=== PATIENT | female | born 1960 | race Caucasian/White ===

== ENCOUNTER 2019-04-22 22:10 | Inpatient (IN) | payer OTHER ==
[~2019-04-22] VITALS: Ht 149.9 cm; Wt 54.0 kg
[~2019-04-22 22:10] MED LIST: BECL8.7A6 IH; METH10 PO
[2019-04-23] VITALS (8 sets, daily range): BP systolic 127–155; BP diastolic 90–112
[2019-04-23 00:58] LABS: BASOPHILS % (AUTO) 1.1 % (0.0-2.0); EOSINOPHILS % (AUTO) 5.8 % (1.0-6.0); HEMATOCRIT 37.9 % (36-46); HEMOGLOBIN 12.4 g/dL (12.0-16.0); LYMPHOCYTES # (AUTO) 2.1 K/uL (1.0-4.8); LYMPHOCYTES % (AUTO) 30.7 % (22.0-44.0); MEAN CORPUSCULAR HGB CONC 32.8 G/dL (31.0-37.0); MEAN CORPUSCULAR VOLUME 98 fL (80-100); MONOCYTES # (AUTO) 0.7 K/uL (0.1-1.0); MONOCYTES % (AUTO) 11.1 % (2.0-9.0); NEUTROPHILS # (AUTO) 3.4 K/uL (1.8-7.7); NEUTROPHILS % (AUTO) 51.3 % (40.0-70.0); PLATELET COUNT (AUTO) 101 K/uL (150-450); RED BLOOD CELL COUNT(AUTO) 3.88 MIL/uL (4.00-5.20); RED CELL DISTRIBUTION WIDTH 14.8 % (11.5-14.5)
[2019-04-23 01:15] LABS: ALBUMIN 2.3 g/dL (3.4-5.0); BILIRUBIN,TOTAL 1.1 mg/dL (0.1-1.0); CALCIUM, TOTAL 9.2 mg/dL (8.8-10.5); CREATININE 1.07 mg/dL (0.60-1.30); POTASSIUM 3.4 mmol/L (3.5-5.1)
[2019-04-23] MEDS ORDERED: PIPERACILLIN/TAZO 3.375 GM/D5W 50 ML IV ONE (02:30)
[2019-04-23] MEDS ORDERED: SODIUM CHLORIDE 0.9% 1,000 ML IV ONE (02:30)
[2019-04-23] MEDS ORDERED: KETOROLAC TROMETHAMINE 30 MG/ML VIAL IVP ONE (02:30)
[2019-04-23] MEDS ORDERED: VANCOMYCIN HCL 1.5 GM in DEXTROSE 5%-WATER 250 ML IV ONE (02:30)
[2019-04-23 02:54] LABS: URIC ACID 2.9 mg/dL (2.6-7.2)
[2019-04-23] MEDS ORDERED: VANCOMYCIN HCL 1 GM/D5% WATER 200 ML IV ONE (03:00)
[2019-04-23] MEDS ORDERED: ACETAMINOPHEN 325 MG TABLET PO PRN (04:45)
[2019-04-23] MEDS ORDERED: ONDANSETRON HCL 4 MG/2 ML VIAL IVP PRN (04:45)
[2019-04-23] MEDS ORDERED: 0.9% SODIUM CHLORIDE 10 ML SYRINGE IVP PRN ×2 (04:45→13:30)
[2019-04-23 06:10] LABS: GLUCOSE,POINT OF CARE 390 MG/DL (70-110)
[2019-04-23] MEDS ORDERED: OxyCODONE HCL/ACETAMINOPHEN 5-325 MG TABLET PO PRN (08:00)
[2019-04-23] MEDS: PIPERACILLIN/TAZO 3.375 GM/D5W 50 ML IV SCH ×3 (09:47→21:30)
[2019-04-23] MEDS ORDERED: VANCOMYCIN HCL 500 MG in DEXTROSE 5%-WATER 100 ML IV ONE (10:00)
[2019-04-23] MEDS ORDERED: DEXTROSE 50%-WATER 25 GM/50 ML SYRINGE IVP PRN ×2 (12:00→12:15)
[2019-04-23] MEDS ORDERED: POTASSIUM CHLORIDE 20 MEQ ER TABLET PO ONE (12:00)
[2019-04-23] MEDS ORDERED: INSULIN REGULAR, HUMAN 100 UNITS/ML SQ PRN (12:00)
[2019-04-23] MEDS: INSULIN REGULAR, HUMAN 100 UNITS/ML SQ PRN ×3 (12:19→21:22)
[2019-04-23] MEDS ORDERED: MORPHINE SULFATE 2 MG/ML SYRINGE IVP PRN (12:30)
[2019-04-23] MEDS: HEPARIN SODIUM,PORCINE 5,000 UNITS/ML VIAL SQ SCH ×2 (13:43→21:31)
[2019-04-23] MEDS: OxyCODONE HCL/ACETAMINOPHEN 5-325 MG TABLET PO PRN (17:40)
[2019-04-23 20:21] LABS: GLUCOMETER DEV NAME(LOC) 6N.1; GLUCOSE,POINT OF CARE 451 MG/DL (70-110)
[2019-04-23 20:21] LABS: GLUCOMETER DEV NAME(LOC) 6N.1; GLUCOSE,POINT OF CARE 133 MG/DL (70-110)
[2019-04-23] MEDS: DOCUSATE SODIUM 100 MG CAPSULE PO SCH (21:11)
[2019-04-23] MEDS: GABAPENTIN 100 MG CAPSULE PO SCH (21:11)
[2019-04-23] MEDS: FAMOTIDINE 10 MG/ML 2 ML VIAL IVP SCH (21:11)
[2019-04-23] MEDS: VANCOMYCIN HCL 500 MG in DEXTROSE 5%-WATER 100 ML IV SCH ×2 (21:11→21:29)
[2019-04-23] MEDS: INSULIN GLARGINE,HUM.REC.ANLOG 100 UNITS/ML SQ SCH (21:24)
[2019-04-24] MEDS: OxyCODONE HCL/ACETAMINOPHEN 5-325 MG TABLET PO PRN ×5 (01:57→21:16)
[2019-04-24] MEDS: PIPERACILLIN/TAZO 3.375 GM/D5W 50 ML IV SCH ×4 (03:41→21:15)
[2019-04-24 04:50] VITALS: BP 153/98
[2019-04-24 05:34] LABS: GLUCOMETER DEV NAME(LOC) 6N.2; GLUCOSE,POINT OF CARE 287 MG/DL (70-110)
[2019-04-24 06:35] LABS: GLUCOMETER DEV NAME(LOC) 6N.2; GLUCOSE,POINT OF CARE 147 MG/DL (70-110)
[2019-04-24] MEDS: INSULIN REGULAR, HUMAN 100 UNITS/ML SQ PRN ×4 (06:37→21:34)
[2019-04-24 06:39] LABS: BASOPHILS % (AUTO) 1.2 % (0.0-2.0); EOSINOPHILS % (AUTO) 7.6 % (1.0-6.0); HEMATOCRIT 38.1 % (36-46); HEMOGLOBIN 12.6 g/dL (12.0-16.0); LYMPHOCYTES # (AUTO) 1.8 K/uL (1.0-4.8); LYMPHOCYTES % (AUTO) 42.6 % (22.0-44.0); MEAN CORPUSCULAR HEMOGLOBIN 32.2 pg (26.0-34.0); MEAN CORPUSCULAR HGB CONC 33.2 G/dL (31.0-37.0); MEAN CORPUSCULAR VOLUME 97 fL (80-100); MONOCYTES # (AUTO) 0.5 K/uL (0.1-1.0); MONOCYTES % (AUTO) 11.6 % (2.0-9.0); NEUTROPHILS # (AUTO) 1.6 K/uL (1.8-7.7); RED BLOOD CELL COUNT(AUTO) 3.93 MIL/uL (4.00-5.20); RED CELL DISTRIBUTION WIDTH 15.1 % (11.5-14.5)
[2019-04-24 06:54] LABS: HEMOGLOBIN A1C 7.3 % (4.5-6.2)
[2019-04-24 07:06] LABS: BILIRUBIN,TOTAL 1.2 mg/dL (0.1-1.0); CALCIUM, TOTAL 8.8 mg/dL (8.8-10.5); CREATININE 1.08 mg/dL (0.60-1.30); POTASSIUM 3.9 mmol/L (3.5-5.1); TOTAL PROTEIN, SERUM 7.3 g/dL (6.4-8.2); VANCOMYCIN,RANDOM 8.2 mcg/mL (25.0-50.0)
[2019-04-24 07:44] VITALS: BP 122/106
[2019-04-24] MEDS: VANCOMYCIN HCL 500 MG in DEXTROSE 5%-WATER 100 ML IV SCH ×3 (08:30→23:28)
[2019-04-24] MEDS: HEPARIN SODIUM,PORCINE 5,000 UNITS/ML VIAL SQ SCH ×2 (08:31→21:17)
[2019-04-24] MEDS: DOCUSATE SODIUM 100 MG CAPSULE PO SCH ×3 (08:31→21:36)
[2019-04-24] MEDS: INSULIN GLARGINE,HUM.REC.ANLOG 100 UNITS/ML SQ SCH ×2 (08:34→21:32)
[2019-04-24 08:44] LABS: PLATELET COUNT (AUTO) 90 K/uL (150-450)
[2019-04-24 11:31] VITALS: BP 136/94
[2019-04-24 15:25] VITALS: BP 158/100
[2019-04-24 17:36] LABS: GLUCOMETER DEV NAME(LOC) 6N.2; GLUCOSE,POINT OF CARE 349 MG/DL (70-110)
[2019-04-24 19:35] VITALS: BP 143/100
[2019-04-24 20:54] LABS: GLUCOMETER DEV NAME(LOC) 6N.1; GLUCOSE,POINT OF CARE 174 MG/DL (70-110)
[2019-04-24] MEDS: GABAPENTIN 100 MG CAPSULE PO SCH (21:17)
[2019-04-24] MEDS: FAMOTIDINE 10 MG/ML 2 ML VIAL IVP SCH (21:17)
[2019-04-24 21:56] LABS: GLUCOMETER DEV NAME(LOC) 6N.1; GLUCOSE,POINT OF CARE 273 MG/DL (70-110)
[2019-04-24 23:45] VITALS: BP 145/105
[2019-04-25 00:13] VITALS: BP 135/94
[2019-04-25] MEDS: PIPERACILLIN/TAZO 3.375 GM/D5W 50 ML IV SCH ×3 (02:03→15:44)
[2019-04-25] MEDS: OxyCODONE HCL/ACETAMINOPHEN 5-325 MG TABLET PO PRN ×6 (02:04→22:52)
[2019-04-25] MEDS ORDERED: AmLODIPine BESYLATE 10 MG TABLET PO ONE (04:00)
[2019-04-25 04:10] VITALS: BP 149/97
[2019-04-25 06:22] LABS: GLUCOMETER DEV NAME(LOC) 6N.2; GLUCOSE,POINT OF CARE 273 MG/DL (70-110)
[2019-04-25] MEDS: INSULIN REGULAR, HUMAN 100 UNITS/ML SQ PRN ×3 (06:40→17:37)
[2019-04-25 07:21] LABS: CALCIUM, TOTAL 8.3 mg/dL (8.8-10.5); CREATININE 1.12 mg/dL (0.60-1.30); POTASSIUM 4.4 mmol/L (3.5-5.1)
[2019-04-25 07:35] VITALS: BP 134/93
[2019-04-25] MEDS: VANCOMYCIN HCL 500 MG in DEXTROSE 5%-WATER 100 ML IV SCH ×3 (08:53→22:56)
[2019-04-25] MEDS: HEPARIN SODIUM,PORCINE 5,000 UNITS/ML VIAL SQ SCH ×2 (08:54→21:00)
[2019-04-25] MEDS: DOCUSATE SODIUM 100 MG CAPSULE PO SCH ×2 (08:54→21:01)
[2019-04-25] MEDS: INSULIN GLARGINE,HUM.REC.ANLOG 100 UNITS/ML SQ SCH ×2 (09:29→21:00)
[2019-04-25 11:20] VITALS: BP 128/85
[2019-04-25 15:15] LABS: GLUCOMETER DEV NAME(LOC) 6N.2; GLUCOSE,POINT OF CARE 230 MG/DL (70-110)
[2019-04-25 20:00] VITALS: BP 115/82
[2019-04-25] MEDS: FAMOTIDINE 10 MG/ML 2 ML VIAL IVP SCH (21:01)
[2019-04-25] MEDS: GABAPENTIN 100 MG CAPSULE PO SCH (21:01)
[2019-04-25 23:24] VITALS: BP 111/76
[2019-04-26 04:00] VITALS: BP 121/74
[2019-04-26] MEDS ORDERED: RINGERS SOLUTION,LACTATED 1,000 ML IV SCH (06:00)
[2019-04-26 06:08] LABS: BASOPHILS % (AUTO) 0.6 % (0.0-2.0); HEMATOCRIT 28.8 % (36-46); LYMPHOCYTES # (AUTO) 1.9 K/uL (1.0-4.8); LYMPHOCYTES % (AUTO) 33.9 % (22.0-44.0); MEAN CORPUSCULAR HEMOGLOBIN 33.6 pg (26.0-34.0); MEAN CORPUSCULAR HGB CONC 34.6 G/dL (31.0-37.0); MEAN CORPUSCULAR VOLUME 97 fL (80-100); MONOCYTES # (AUTO) 0.7 K/uL (0.1-1.0); MONOCYTES % (AUTO) 11.9 % (2.0-9.0); NEUTROPHILS # (AUTO) 2.7 K/uL (1.8-7.7); NEUTROPHILS % (AUTO) 48.6 % (40.0-70.0); RED BLOOD CELL COUNT(AUTO) 2.97 MIL/uL (4.00-5.20); RED CELL DISTRIBUTION WIDTH 14.8 % (11.5-14.5)
[2019-04-26 06:22] LABS: CALCIUM, TOTAL 8.5 mg/dL (8.8-10.5); CREATININE 0.97 mg/dL (0.60-1.30); POTASSIUM 4.5 mmol/L (3.5-5.1); VANCOMYCIN,RANDOM 13.9 mcg/mL (25.0-50.0)
[2019-04-26] MEDS ORDERED: BUPIVACAINE HCL/PF 0.5% 30 ML VIAL ONE (06:42)
[2019-04-26] MEDS ORDERED: SODIUM CHLORIDE 0.9% 10 ML ONE (06:43)
[2019-04-26] MEDS ORDERED: BACITRACIN 50,000 UNITS/VIAL ONE (06:43)
[2019-04-26] MEDS ORDERED: LIDOCAINE/PF 1% 30 ML VIAL ONE (06:43)
[2019-04-26] MEDS ORDERED: SODIUM CL IRRIG SOLN BAG 3,000 ML IRRIG ONE (06:44)
[2019-04-26 07:12] LABS: PLATELET COUNT (AUTO) 86 K/uL (150-450)
[2019-04-26] MEDS: VANCOMYCIN HCL 500 MG in DEXTROSE 5%-WATER 100 ML IV SCH ×3 (08:54→23:13)
[2019-04-26 08:57] VITALS: BP 103/68
[2019-04-26] MEDS: DOCUSATE SODIUM 100 MG CAPSULE PO SCH ×2 (09:31→19:51)
[2019-04-26] MEDS: AmLODIPine BESYLATE 10 MG TABLET PO SCH (09:32)
[2019-04-26] MEDS: OxyCODONE HCL/ACETAMINOPHEN 5-325 MG TABLET PO PRN ×3 (09:32→20:02)
[2019-04-26] MEDS: INSULIN GLARGINE,HUM.REC.ANLOG 100 UNITS/ML SQ SCH ×2 (09:33→20:12)
[2019-04-26] MEDS: HEPARIN SODIUM,PORCINE 5,000 UNITS/ML VIAL SQ SCH ×2 (09:34→19:51)
[2019-04-26 11:55] VITALS: BP 128/86
[2019-04-26] MEDS ORDERED: KETAMINE HCL 50 MG/ML 10 ML VIAL IVP ONE (12:00)
[2019-04-26] MEDS ORDERED: FentaNYL CITRATE-PF 100 MCG/2 ML VIAL IVP ONE (12:00)
[2019-04-26] MEDS ORDERED: MIDAZOLAM HCL 2 MG/2 ML VIAL IVP ONE (12:00)
[2019-04-26] MEDS: INSULIN REGULAR, HUMAN 100 UNITS/ML SQ PRN ×3 (12:00→20:13)
[2019-04-26] MEDS ORDERED: PROPOFOL 1% 20 ML VIAL IVP ONE (12:00)
[2019-04-26 15:51] VITALS: BP 121/85
[2019-04-26] MEDS: GABAPENTIN 100 MG CAPSULE PO SCH (19:51)
[2019-04-26] MEDS: FAMOTIDINE 10 MG/ML 2 ML VIAL IVP SCH (19:51)
[2019-04-26 20:05] VITALS: BP 140/81
[2019-04-26 23:12] VITALS: BP 113/63
[2019-04-27] MEDS: OxyCODONE HCL/ACETAMINOPHEN 5-325 MG TABLET PO PRN ×5 (00:54→19:53)
[2019-04-27 05:03] VITALS: BP 121/87
[2019-04-27] MEDS: INSULIN REGULAR, HUMAN 100 UNITS/ML SQ PRN ×4 (06:07→20:35)
[2019-04-27 06:22] LABS: BASOPHILS % (AUTO) 0.9 % (0.0-2.0); EOSINOPHILS % (AUTO) 4.4 % (1.0-6.0); HEMATOCRIT 25.7 % (36-46); HEMOGLOBIN 8.9 g/dL (12.0-16.0); MEAN CORPUSCULAR HEMOGLOBIN 33.8 pg (26.0-34.0); MEAN CORPUSCULAR HGB CONC 34.6 G/dL (31.0-37.0); MEAN CORPUSCULAR VOLUME 98 fL (80-100); MONOCYTES # (AUTO) 0.6 K/uL (0.1-1.0); MONOCYTES % (AUTO) 12.4 % (2.0-9.0); NEUTROPHILS # (AUTO) 2.2 K/uL (1.8-7.7); NEUTROPHILS % (AUTO) 43.3 % (40.0-70.0); PLATELET COUNT (AUTO) 93 K/uL (150-450); RED BLOOD CELL COUNT(AUTO) 2.64 MIL/uL (4.00-5.20); RED CELL DISTRIBUTION WIDTH 15.3 % (11.5-14.5)
[2019-04-27 06:51] LABS: CALCIUM, TOTAL 8.7 mg/dL (8.8-10.5); POTASSIUM 4.2 mmol/L (3.5-5.1)
[2019-04-27 08:05] VITALS: BP 130/88
[2019-04-27] MEDS: HEPARIN SODIUM,PORCINE 5,000 UNITS/ML VIAL SQ SCH ×3 (09:00→19:49)
[2019-04-27] MEDS: AmLODIPine BESYLATE 10 MG TABLET PO SCH (09:02)
[2019-04-27] MEDS: DOCUSATE SODIUM 100 MG CAPSULE PO SCH ×2 (09:02→19:49)
[2019-04-27] MEDS: VANCOMYCIN HCL 500 MG in DEXTROSE 5%-WATER 100 ML IV SCH ×3 (09:02→23:54)
[2019-04-27] MEDS: INSULIN GLARGINE,HUM.REC.ANLOG 100 UNITS/ML SQ SCH ×2 (09:04→20:36)
[2019-04-27 11:33] VITALS: BP 137/89
[2019-04-27] MEDS ORDERED: SODIUM CHLORIDE 0.9% 1,000 ML ONE (15:34)
[2019-04-27 16:18] VITALS: BP 136/80
[2019-04-27] MEDS: GABAPENTIN 100 MG CAPSULE PO SCH (19:49)
[2019-04-27] MEDS: FAMOTIDINE 10 MG/ML 2 ML VIAL IVP SCH (19:49)
[2019-04-27 20:46] VITALS: BP 114/75
[2019-04-27 23:53] VITALS: BP 121/68
[2019-04-28] MEDS: OxyCODONE HCL/ACETAMINOPHEN 5-325 MG TABLET PO PRN ×5 (00:57→20:27)
[2019-04-28] MEDS: INSULIN REGULAR, HUMAN 100 UNITS/ML SQ PRN ×4 (05:36→21:31)
[2019-04-28 05:42] VITALS: BP 109/68
[2019-04-28 06:08] LABS: BASOPHILS % (AUTO) 1.1 % (0.0-2.0); EOSINOPHILS % (AUTO) 3.6 % (1.0-6.0); HEMATOCRIT 24.4 % (36-46); HEMOGLOBIN 8.3 g/dL (12.0-16.0); LYMPHOCYTES # (AUTO) 1.2 K/uL (1.0-4.8); LYMPHOCYTES % (AUTO) 26.4 % (22.0-44.0); MEAN CORPUSCULAR HEMOGLOBIN 33.5 pg (26.0-34.0); MEAN CORPUSCULAR HGB CONC 34.1 G/dL (31.0-37.0); MEAN CORPUSCULAR VOLUME 98 fL (80-100); MONOCYTES # (AUTO) 0.5 K/uL (0.1-1.0); MONOCYTES % (AUTO) 10.9 % (2.0-9.0); NEUTROPHILS # (AUTO) 2.6 K/uL (1.8-7.7); PLATELET COUNT (AUTO) 90 K/uL (150-450); RED BLOOD CELL COUNT(AUTO) 2.48 MIL/uL (4.00-5.20)
[2019-04-28 06:17] LABS: ANION GAP 6 mmol/L (8-16); CARBON DIOXIDE 24 mmol/L (22-29); CHLORIDE 105 mmol/L (98-107); CREATININE 0.88 mg/dL (0.60-1.30); GLOMERULAR FILTR. RATE CALC > 60 mL/min (>60); GLUCOSE,RANDOM 233 mg/dL (70-110); POTASSIUM 4.2 mmol/L (3.5-5.1); SODIUM SERUM 135 mmol/L (136-145); UREA NITROGEN, BLOOD 18 mg/dL (7-18)
[2019-04-28 07:30] VITALS: BP 117/69
[2019-04-28] MEDS: AmLODIPine BESYLATE 10 MG TABLET PO SCH (08:03)
[2019-04-28] MEDS: VANCOMYCIN HCL 500 MG in DEXTROSE 5%-WATER 100 ML IV SCH ×2 (08:03→15:44)
[2019-04-28] MEDS: HEPARIN SODIUM,PORCINE 5,000 UNITS/ML VIAL SQ SCH ×3 (08:03→20:13)
[2019-04-28] MEDS: MULTIVITAMINS WITH MINERALS, THERAPEUTIC TABLET PO SCH (08:03)
[2019-04-28] MEDS: DOCUSATE SODIUM 100 MG CAPSULE PO SCH ×2 (08:03→20:13)
[2019-04-28] MEDS ORDERED: SODIUM CHLORIDE 0.9% 1,000 ML ONE (08:06)
[2019-04-28] MEDS: INSULIN GLARGINE,HUM.REC.ANLOG 100 UNITS/ML SQ SCH ×2 (08:10→21:29)
[2019-04-28 11:20] VITALS: BP 128/77
[2019-04-28 15:20] VITALS: BP 124/77
[2019-04-28 19:36] VITALS: BP 99/60
[2019-04-28] MEDS: GABAPENTIN 100 MG CAPSULE PO SCH (20:13)
[2019-04-28] MEDS: FAMOTIDINE 10 MG/ML 2 ML VIAL IVP SCH (20:13)
[2019-04-29] MEDS: OxyCODONE HCL/ACETAMINOPHEN 5-325 MG TABLET PO PRN ×3 (00:36→14:05)
[2019-04-29] MEDS: VANCOMYCIN HCL 500 MG in DEXTROSE 5%-WATER 100 ML IV SCH ×4 (00:39→23:31)
[2019-04-29 00:46] VITALS: BP 101/62
[2019-04-29 04:44] VITALS: BP 121/79
[2019-04-29 05:58] LABS: BASOPHILS % (AUTO) 0.5 % (0.0-2.0); EOSINOPHILS % (AUTO) 4.5 % (1.0-6.0); HEMATOCRIT 21.5 % (36-46); HEMOGLOBIN 7.4 g/dL (12.0-16.0); LYMPHOCYTES # (AUTO) 1.7 K/uL (1.0-4.8); LYMPHOCYTES % (AUTO) 32.5 % (22.0-44.0); MEAN CORPUSCULAR HEMOGLOBIN 34.5 pg (26.0-34.0); MEAN CORPUSCULAR HGB CONC 34.3 G/dL (31.0-37.0); MEAN CORPUSCULAR VOLUME 101 fL (80-100); MONOCYTES # (AUTO) 0.8 K/uL (0.1-1.0); MONOCYTES % (AUTO) 15.8 % (2.0-9.0); NEUTROPHILS # (AUTO) 2.5 K/uL (1.8-7.7); NEUTROPHILS % (AUTO) 46.7 % (40.0-70.0); PLATELET COUNT (AUTO) 89 K/uL (150-450); RED BLOOD CELL COUNT(AUTO) 2.13 MIL/uL (4.00-5.20); RED CELL DISTRIBUTION WIDTH 16.4 % (11.5-14.5)
[2019-04-29 06:11] LABS: CALCIUM, TOTAL 8.1 mg/dL (8.8-10.5); CREATININE 1.03 mg/dL (0.60-1.30); POTASSIUM 4.5 mmol/L (3.5-5.1)
[2019-04-29] MEDS: INSULIN REGULAR, HUMAN 100 UNITS/ML SQ PRN ×4 (06:58→21:07)
[2019-04-29 07:43] VITALS: BP 104/60
[2019-04-29] MEDS: HEPARIN SODIUM,PORCINE 5,000 UNITS/ML VIAL SQ SCH ×2 (08:51→21:04)
[2019-04-29] MEDS: INSULIN GLARGINE,HUM.REC.ANLOG 100 UNITS/ML SQ SCH ×2 (08:52→21:06)
[2019-04-29] MEDS: DOCUSATE SODIUM 100 MG CAPSULE PO SCH ×2 (08:53→21:00)
[2019-04-29] MEDS: AmLODIPine BESYLATE 10 MG TABLET PO SCH (08:53)
[2019-04-29] MEDS: MULTIVITAMINS WITH MINERALS, THERAPEUTIC TABLET PO SCH (08:53)
[2019-04-29 11:01] LABS: INR 1.3 (0.9-1.1); PROTHROMBIN TIME 12.7 SEC (9.4-11.6)
[2019-04-29] MEDS ORDERED: HEPARIN SODIUM 1000 UNITS/NS 500 ML ONE (11:05)
[2019-04-29 13:09] LABS: GLUCOMETER DEV NAME(LOC) 6N.1; GLUCOSE,POINT OF CARE 308 MG/DL (70-110)
[2019-04-29 13:09] LABS: GLUCOMETER DEV NAME(LOC) 6N.1; GLUCOSE,POINT OF CARE 201 MG/DL (70-110)
[2019-04-29 13:09] LABS: GLUCOMETER DEV NAME(LOC) 6N.1; GLUCOSE,POINT OF CARE 231 MG/DL (70-110)
[2019-04-29 13:10] LABS: GLUCOMETER DEV NAME(LOC) 4E.2; GLUCOSE,POINT OF CARE 146 MG/DL (70-110)
[2019-04-29 13:10] LABS: GLUCOMETER DEV NAME(LOC) 4E.2; GLUCOSE,POINT OF CARE 261 MG/DL (70-110)
[2019-04-29 13:10] LABS: GLUCOMETER DEV NAME(LOC) 4E.2; GLUCOSE,POINT OF CARE 264 MG/DL (70-110)
[2019-04-29 13:11] LABS: GLUCOMETER DEV NAME(LOC) 4E.2; GLUCOSE,POINT OF CARE 377 MG/DL (70-110)
[2019-04-29 13:11] LABS: GLUCOMETER DEV NAME(LOC) 4E.2; GLUCOSE,POINT OF CARE 271 MG/DL (70-110)
[2019-04-29 13:11] LABS: GLUCOMETER DEV NAME(LOC) 6N.1; GLUCOSE,POINT OF CARE 291 MG/DL (70-110)
[2019-04-29 13:11] LABS: GLUCOMETER DEV NAME(LOC) 6N.1; GLUCOSE,POINT OF CARE 273 MG/DL (70-110)
[2019-04-29 13:11] LABS: GLUCOMETER DEV NAME(LOC) 6N.1; GLUCOSE,POINT OF CARE 262 MG/DL (70-110)
[2019-04-29 13:11] LABS: GLUCOMETER DEV NAME(LOC) 4E.2; GLUCOSE,POINT OF CARE 286 MG/DL (70-110)
[2019-04-29 13:11] LABS: GLUCOMETER DEV NAME(LOC) 4E.2; GLUCOSE,POINT OF CARE 279 MG/DL (70-110)
[2019-04-29 13:12] LABS: GLUCOMETER DEV NAME(LOC) 4E.2; GLUCOSE,POINT OF CARE 268 MG/DL (70-110)
[2019-04-29 13:12] LABS: GLUCOMETER DEV NAME(LOC) 4E.2; GLUCOSE,POINT OF CARE 240 MG/DL (70-110)
[2019-04-29 14:27] LABS: GLUCOMETER DEV NAME(LOC) 6N.1; GLUCOSE,POINT OF CARE 226 MG/DL (70-110)
[2019-04-29 15:50] VITALS: BP 108/64
[2019-04-29 17:30] LABS: GLUCOMETER DEV NAME(LOC) 4E.2; GLUCOSE,POINT OF CARE 205 MG/DL (70-110)
[2019-04-29] MEDS: HYDROCODONE/ACETAMINOPHEN 10-325 MG TABLET PO PRN ×2 (17:42→22:14)
[2019-04-29 19:48] VITALS: BP 102/65
[2019-04-29 20:59] LABS: GLUCOMETER DEV NAME(LOC) 4E.2; GLUCOSE,POINT OF CARE 211 MG/DL (70-110)
[2019-04-29] MEDS: GABAPENTIN 100 MG CAPSULE PO SCH (21:04)
[2019-04-29] MEDS: FAMOTIDINE 10 MG/ML 2 ML VIAL IVP SCH (21:04)
[2019-04-29] MEDS ORDERED: SODIUM CHLORIDE 0.9% 500 ML IV ONE (22:08)
[2019-04-30] VITALS (12 sets, daily range): BP systolic 87–116; BP diastolic 42–72
[2019-04-30] MEDS: HYDROCODONE/ACETAMINOPHEN 10-325 MG TABLET PO PRN ×3 (03:45→18:07)
[2019-04-30] MEDS: INSULIN REGULAR, HUMAN 100 UNITS/ML SQ PRN ×2 (06:16→11:37)
[2019-04-30 06:46] LABS: GLUCOMETER DEV NAME(LOC) 4E.2; GLUCOSE,POINT OF CARE 242 MG/DL (70-110)
[2019-04-30 07:09] LABS: CALCIUM, TOTAL 7.9 mg/dL (8.8-10.5); CREATININE 0.97 mg/dL (0.60-1.30); POTASSIUM 4.3 mmol/L (3.5-5.1)
[2019-04-30] MEDS: VANCOMYCIN HCL 500 MG in DEXTROSE 5%-WATER 100 ML IV SCH ×2 (08:29→23:54)
[2019-04-30] MEDS: INSULIN GLARGINE,HUM.REC.ANLOG 100 UNITS/ML SQ SCH ×2 (08:35→21:00)
[2019-04-30] MEDS: HEPARIN SODIUM,PORCINE 5,000 UNITS/ML VIAL SQ SCH (08:35)
[2019-04-30] MEDS: AmLODIPine BESYLATE 10 MG TABLET PO SCH (08:36)
[2019-04-30] MEDS: MULTIVITAMINS WITH MINERALS, THERAPEUTIC TABLET PO SCH (08:36)
[2019-04-30] MEDS: DOCUSATE SODIUM 100 MG CAPSULE PO SCH ×3 (08:39→21:14)
[2019-04-30] MEDS: ONDANSETRON HCL 4 MG/2 ML VIAL IVP PRN ×3 (12:45→17:09)
[2019-04-30] MEDS ORDERED: PANTOPRAZOLE SODIUM 40 MG/VIAL IVP ONE (13:30)
[2019-04-30 14:35] LABS: BASOPHILS % (AUTO) 1.2 % (0.0-2.0); LYMPHOCYTES # (AUTO) 2.4 K/uL (1.0-4.8); LYMPHOCYTES % (AUTO) 29.4 % (22.0-44.0); MEAN CORPUSCULAR HEMOGLOBIN 34.7 pg (26.0-34.0); MEAN CORPUSCULAR HGB CONC 33.8 G/dL (31.0-37.0); MEAN CORPUSCULAR VOLUME 103 fL (80-100); MONOCYTES # (AUTO) 1.3 K/uL (0.1-1.0); MONOCYTES % (AUTO) 16.5 % (2.0-9.0); NEUTROPHILS # (AUTO) 4.1 K/uL (1.8-7.7); NEUTROPHILS % (AUTO) 49.9 % (40.0-70.0); PLATELET COUNT (AUTO) 99 K/uL (150-450); RED CELL DISTRIBUTION WIDTH 17.7 % (11.5-14.5)
[2019-04-30 14:49] LABS: HEMATOCRIT 15.4 % (36-46); HEMOGLOBIN 5.2 g/dL (12.0-16.0)
[2019-04-30] MEDS ORDERED: SODIUM CHLORIDE 0.9% 250 ML IV ONE ×2 (16:17→16:47)
[2019-04-30 17:45] LABS: GLUCOMETER DEV NAME(LOC) 4E.2; GLUCOSE,POINT OF CARE 233 MG/DL (70-110)
[2019-04-30] MEDS: GABAPENTIN 100 MG CAPSULE PO SCH (21:10)
[2019-04-30] MEDS: PANTOPRAZOLE SODIUM 80 MG in SODIUM CHLORIDE 0.9% 100 ML IV SCH (23:30)
[2019-05-01] VITALS (8 sets, daily range): BP systolic 92–115; BP diastolic 38–71
[2019-05-01 00:05] LABS: HEMATOCRIT 24.1 % (36-46); HEMOGLOBIN 8.5 g/dL (12.0-16.0)
[2019-05-01 06:03] LABS: CALCIUM, TOTAL 7.3 mg/dL (8.8-10.5); CREATININE 0.95 mg/dL (0.60-1.30); POTASSIUM 4.3 mmol/L (3.5-5.1)
[2019-05-01] MEDS: HYDROCODONE/ACETAMINOPHEN 10-325 MG TABLET PO PRN (06:33)
[2019-05-01 06:40] LABS: GLUCOSE,POINT OF CARE 232 MG/DL (70-110)
[2019-05-01 06:45] LABS: GLUCOSE,POINT OF CARE 201 MG/DL (70-110)
[2019-05-01 06:45] LABS: GLUCOSE,POINT OF CARE 206 MG/DL (70-110)
[2019-05-01] MEDS ORDERED: SODIUM CHLORIDE 0.9% 250 ML IV ONE ×2 (08:23→23:48)
[2019-05-01] MEDS: AmLODIPine BESYLATE 10 MG TABLET PO SCH ×2 (08:56→09:00)
[2019-05-01] MEDS: DOCUSATE SODIUM 100 MG CAPSULE PO SCH ×2 (09:00→20:46)
[2019-05-01] MEDS: MULTIVITAMINS WITH MINERALS, THERAPEUTIC TABLET PO SCH (09:00)
[2019-05-01] MEDS: INSULIN GLARGINE,HUM.REC.ANLOG 100 UNITS/ML SQ SCH ×2 (09:00→20:56)
[2019-05-01] MEDS: VANCOMYCIN HCL 500 MG in DEXTROSE 5%-WATER 100 ML IV SCH ×2 (09:01→16:37)
[2019-05-01 09:30] LABS: GLUCOSE,POINT OF CARE 170 MG/DL (70-110)
[2019-05-01] MEDS: PANTOPRAZOLE SODIUM 80 MG in SODIUM CHLORIDE 0.9% 100 ML IV SCH (10:33)
[2019-05-01] MEDS: MORPHINE SULFATE 2 MG/ML SYRINGE IVP PRN ×2 (11:39→19:16)
[2019-05-01] MEDS ORDERED: FentaNYL CITRATE-PF 100 MCG/2 ML VIAL ONE (13:40)
[2019-05-01] MEDS ORDERED: MIDAZOLAM HCL 5 MG/ML VIAL ONE (13:40)
[2019-05-01 16:31] LABS: GLUCOSE,POINT OF CARE 180 MG/DL (70-110)
[2019-05-01] MEDS: INSULIN REGULAR, HUMAN 100 UNITS/ML SQ PRN (17:32)
[2019-05-01] MEDS: GABAPENTIN 100 MG CAPSULE PO SCH (20:46)
[2019-05-02] VITALS (7 sets, daily range): BP systolic 103–123; BP diastolic 63–75
[2019-05-02] MEDS: VANCOMYCIN HCL 500 MG in DEXTROSE 5%-WATER 100 ML IV SCH ×4 (00:03→23:17)
[2019-05-02] MEDS: MORPHINE SULFATE 2 MG/ML SYRINGE IVP PRN ×4 (03:36→22:29)
[2019-05-02 06:56] LABS: GLUCOSE,POINT OF CARE 307 MG/DL (70-110)
[2019-05-02 06:56] LABS: GLUCOSE,POINT OF CARE 263 MG/DL (70-110)
[2019-05-02] MEDS: INSULIN REGULAR, HUMAN 100 UNITS/ML SQ PRN ×5 (06:57→20:09)
[2019-05-02 07:35] LABS: GLUCOMETER DEV NAME(LOC) 6N.2; GLUCOSE,POINT OF CARE 205 MG/DL (70-110)
[2019-05-02 07:55] LABS: CALCIUM, TOTAL 7.5 mg/dL (8.8-10.5); CREATININE 1.01 mg/dL (0.60-1.30); POTASSIUM 3.9 mmol/L (3.5-5.1); VANCOMYCIN,RANDOM 15.5 mcg/mL (25.0-50.0)
[2019-05-02] MEDS: INSULIN GLARGINE,HUM.REC.ANLOG 100 UNITS/ML SQ SCH ×2 (08:28→20:10)
[2019-05-02 08:30] LABS: GLUCOMETER DEV NAME(LOC) 6N.2; GLUCOSE,POINT OF CARE 169 MG/DL (70-110)
[2019-05-02] MEDS: DOCUSATE SODIUM 100 MG CAPSULE PO SCH ×2 (08:30→20:10)
[2019-05-02] MEDS: AmLODIPine BESYLATE 10 MG TABLET PO SCH (08:30)
[2019-05-02] MEDS: MULTIVITAMINS WITH MINERALS, THERAPEUTIC TABLET PO SCH (08:30)
[2019-05-02] MEDS ORDERED: SODIUM CHLORIDE 0.9% 500 ML IV ONE (09:26)
[2019-05-02] MEDS: PANTOPRAZOLE SODIUM 40 MG/VIAL IVP SCH (11:26)
[2019-05-02 13:37] LABS: GLUCOMETER DEV NAME(LOC) 6N.2; GLUCOSE,POINT OF CARE 387 MG/DL (70-110)
[2019-05-02] MEDS: GABAPENTIN 100 MG CAPSULE PO SCH (20:10)
[2019-05-02 23:03] LABS: GLUCOMETER DEV NAME(LOC) 6N.2; GLUCOSE,POINT OF CARE 271 MG/DL (70-110)
[2019-05-02 23:03] LABS: GLUCOMETER DEV NAME(LOC) 6N.2; GLUCOSE,POINT OF CARE 199 MG/DL (70-110)
[2019-05-03] MEDS: MORPHINE SULFATE 2 MG/ML SYRINGE IVP PRN ×3 (04:39→20:25)
[2019-05-03] MEDS: INSULIN REGULAR, HUMAN 100 UNITS/ML SQ PRN ×4 (06:15→20:34)
[2019-05-03 07:42] LABS: GLUCOMETER DEV NAME(LOC) 6N.2; GLUCOSE,POINT OF CARE 178 MG/DL (70-110)
[2019-05-03 08:51] VITALS: BP 96/55
[2019-05-03] MEDS: MULTIVITAMINS WITH MINERALS, THERAPEUTIC TABLET PO SCH (09:01)
[2019-05-03] MEDS: AmLODIPine BESYLATE 10 MG TABLET PO SCH (09:01)
[2019-05-03] MEDS: DOCUSATE SODIUM 100 MG CAPSULE PO SCH ×2 (09:01→20:34)
[2019-05-03] MEDS: PANTOPRAZOLE SODIUM 40 MG/VIAL IVP SCH (09:01)
[2019-05-03] MEDS: INSULIN GLARGINE,HUM.REC.ANLOG 100 UNITS/ML SQ SCH ×2 (09:08→20:33)
[2019-05-03] MEDS: VANCOMYCIN HCL 500 MG in DEXTROSE 5%-WATER 100 ML IV SCH ×3 (09:08→23:50)
[2019-05-03 10:22] LABS: CALCIUM, TOTAL 7.2 mg/dL (8.8-10.5); CREATININE 0.96 mg/dL (0.60-1.30); POTASSIUM 4.3 mmol/L (3.5-5.1)
[2019-05-03 10:48] LABS: EOSINOPHILS % (AUTO) 3.9 % (1.0-6.0); HEMATOCRIT 26.6 % (36-46); LYMPHOCYTES # (AUTO) 2.1 K/uL (1.0-4.8); LYMPHOCYTES % (AUTO) 34.1 % (22.0-44.0); MEAN CORPUSCULAR HEMOGLOBIN 32.4 pg (26.0-34.0); MEAN CORPUSCULAR HGB CONC 33.7 G/dL (31.0-37.0); MEAN CORPUSCULAR VOLUME 96 fL (80-100); MONOCYTES # (AUTO) 0.8 K/uL (0.1-1.0); MONOCYTES % (AUTO) 13.1 % (2.0-9.0); NEUTROPHILS % (AUTO) 47.9 % (40.0-70.0); PLATELET COUNT (AUTO) 124 K/uL (150-450); RED BLOOD CELL COUNT(AUTO) 2.76 MIL/uL (4.00-5.20); RED CELL DISTRIBUTION WIDTH 18.8 % (11.5-14.5)
[2019-05-03 12:36] LABS: GLUCOMETER DEV NAME(LOC) 6N.2; GLUCOSE,POINT OF CARE 347 MG/DL (70-110)
[2019-05-03 15:56] VITALS: BP 123/69
[2019-05-03] MEDS ORDERED: SODIUM CL IRRIG SOLN BOTTLE 250 ML IRRIG ONE (16:16)
[2019-05-03 17:58] LABS: GLUCOMETER DEV NAME(LOC) 6N.2; GLUCOSE,POINT OF CARE 265 MG/DL (70-110)
[2019-05-03 20:21] VITALS: BP 101/57
[2019-05-03] MEDS: GABAPENTIN 100 MG CAPSULE PO SCH (20:25)
[2019-05-03 20:50] LABS: GLUCOMETER DEV NAME(LOC) 6N.2; GLUCOSE,POINT OF CARE 237 MG/DL (70-110)
[2019-05-04 00:13] VITALS: BP 109/74
[2019-05-04] MEDS: MORPHINE SULFATE 2 MG/ML SYRINGE IVP PRN ×2 (02:59→09:35)
[2019-05-04 04:42] VITALS: BP 123/77
[2019-05-04] MEDS: INSULIN REGULAR, HUMAN 100 UNITS/ML SQ PRN ×2 (06:17→11:18)
[2019-05-04 07:43] LABS: ANION GAP 7 mmol/L (8-16); CALCIUM, TOTAL 7.4 mg/dL (8.8-10.5); CARBON DIOXIDE 25 mmol/L (22-29); CHLORIDE 109 mmol/L (98-107); CREATININE 0.74 mg/dL (0.60-1.30); GLOMERULAR FILTR. RATE CALC > 60 mL/min (>60); GLUCOSE,RANDOM 195 mg/dL (70-110); POTASSIUM 4.2 mmol/L (3.5-5.1); SODIUM SERUM 141 mmol/L (136-145); UREA NITROGEN, BLOOD 12 mg/dL (7-18)
[2019-05-04 07:58] LABS: GLUCOMETER DEV NAME(LOC) 6N.2; GLUCOSE,POINT OF CARE 208 MG/DL (70-110)
[2019-05-04 08:10] VITALS: BP 110/71
[2019-05-04] MEDS: MULTIVITAMINS WITH MINERALS, THERAPEUTIC TABLET PO SCH (08:13)
[2019-05-04] MEDS: VANCOMYCIN HCL 500 MG in DEXTROSE 5%-WATER 100 ML IV SCH (08:13)
[2019-05-04] MEDS: AmLODIPine BESYLATE 10 MG TABLET PO SCH (08:13)
[2019-05-04] MEDS: INSULIN GLARGINE,HUM.REC.ANLOG 100 UNITS/ML SQ SCH (08:17)
[2019-05-04] MEDS: DOCUSATE SODIUM 100 MG CAPSULE PO SCH (08:18)
[2019-05-04] MEDS: PANTOPRAZOLE SODIUM 40 MG/VIAL IVP SCH (09:04)
[2019-05-04 11:25] VITALS: BP 132/79
[2019-05-04 19:34] LABS: GLUCOMETER DEV NAME(LOC) 6N.2; GLUCOSE,POINT OF CARE 379 MG/DL (70-110)
== END 2019-05-04 11:45 | DRG 344 ==
LOC: EMS 22:11 → 6N 04-23 05:19 → 4E 04-25 15:27 → 5S 04-30 15:17 → ICU 04-30 16:20 → 6N 05-02 01:46
PROVIDERS: ADMIT Internal Medicine; ATTEND Internal Medicine
PROC: 0QBR0ZX Excision of Left Toe Phalanx, Open Approach, Diagnostic (ICD-10-PCS; 2019-04-27)
PROC: 02HV33Z Insertion of Infusion Device into Superior Vena Cava, Percutaneous Approach (ICD-10-PCS; 2019-04-29)
PROC: B548ZZA Ultrasonography of Superior Vena Cava, Guidance (ICD-10-PCS; 2019-04-29)
PROC: 30233N1 Transfusion of Nonautologous Red Blood Cells into Peripheral Vein, Percutaneous Approach (ICD-10-PCS; 2019-04-30)
PROC: 0DB68ZX Excision of Stomach, Via Natural or Artificial Opening Endoscopic, Diagnostic (ICD-10-PCS; principal; 2019-05-01 13:00)
DX: E11.69 Type 2 diabetes mellitus with other specified complication (principal); M86.172 Other acute osteomyelitis, left ankle and foot; E43 Unspecified severe protein-calorie malnutrition; D69.6 Thrombocytopenia, unspecified; E87.1 Hypo-osmolality and hyponatremia; E11.65 Type 2 diabetes mellitus with hyperglycemia; E87.5 Hyperkalemia; K92.2 Gastrointestinal hemorrhage, unspecified; L03.116 Cellulitis of left lower limb; L03.032 Cellulitis of left toe; B95.62 Methicillin resistant Staphylococcus aureus infection as the cause of diseases classified elsewhere; I10 Essential (primary) hypertension; B18.2 Chronic viral hepatitis C; D64.9 Anemia, unspecified; K44.9 Diaphragmatic hernia without obstruction or gangrene; K64.9 Unspecified hemorrhoids; J44.9 Chronic obstructive pulmonary disease, unspecified; K76.9 Liver disease, unspecified; F17.210 Nicotine dependence, cigarettes, uncomplicated; F11.10 Opioid abuse, uncomplicated; K92.1 Melena; L97.529 Non-pressure chronic ulcer of other part of left foot with unspecified severity; Z91.81 History of falling; Z68.22 Body mass index [BMI] 22.0-22.9, adult; Z98.890 Other specified postprocedural states; Z90.49 Acquired absence of other specified parts of digestive tract; Z90.710 Acquired absence of both cervix and uterus; Z88.8 Allergy status to other drugs, medicaments and biological substances
CPT/HCPCS: 36245; 36569; 73503; 76937; 83036; 84550; 85014; 85018; 86850; 86900; 86901; 86920; 87070; 87101; 87205; 88305; 88307; 88311; 88312; 88313; 93005; 93925; C9113; G0378; J1644; J1815; J1885; J2250; J2270; J2405; J2543; J2704; J3010; J3370; J3490; J7030; J7040; J7050; J7060; J7120; P9016

== ENCOUNTER 2019-05-09 10:03 | Inpatient (IN) | payer OTHER ==
[~2019-05-09] VITALS: Ht 157.5 cm; Wt 61.7 kg
[2019-05-09] VITALS (13 sets, daily range): BP systolic 93–131; BP diastolic 51–72
[2019-05-09] MEDS ORDERED: AMLO10TA7 PO (10:20)
[2019-05-09] MEDS ORDERED: GABA-529 PO (10:20)
[2019-05-09] MEDS ORDERED: DOCU-275 PO (10:20)
[2019-05-09] MEDS ORDERED: INSLAN SQ (10:20)
[2019-05-09] MEDS ORDERED: MULT-723 PO (10:20)
[2019-05-09] MEDS ORDERED: FAMOTIDINE 10 MG/ML 2 ML VIAL IVP ONE (11:00)
[2019-05-09] MEDS ORDERED: PANTOPRAZOLE SODIUM 40 MG/VIAL IVP ONE (11:00)
[2019-05-09 11:14] LABS: BASOPHILS % (AUTO) 0.7 % (0.0-2.0); EOSINOPHILS % (AUTO) 0.6 % (1.0-6.0); LYMPHOCYTES # (AUTO) 2.5 K/uL (1.0-4.8); LYMPHOCYTES % (AUTO) 18.1 % (22.0-44.0); MEAN CORPUSCULAR HEMOGLOBIN 29.4 pg (26.0-34.0); MEAN CORPUSCULAR HGB CONC 30.9 G/dL (31.0-37.0); MEAN CORPUSCULAR VOLUME 95 fL (80-100); MONOCYTES # (AUTO) 1.2 K/uL (0.1-1.0); MONOCYTES % (AUTO) 8.8 % (2.0-9.0); NEUTROPHILS # (AUTO) 9.8 K/uL (1.8-7.7); NEUTROPHILS % (AUTO) 71.8 % (40.0-70.0); PLATELET COUNT (AUTO) 211 K/uL (150-450); RED CELL DISTRIBUTION WIDTH 18.1 % (11.5-14.5)
[2019-05-09] MEDS ORDERED: SODIUM CHLORIDE 0.9% 250 ML IV ONE (11:19)
[2019-05-09 11:27] LABS: CALCIUM, TOTAL 8.3 mg/dL (8.8-10.5); CREATININE 1.15 mg/dL (0.60-1.30); HEMOGLOBIN 4.7 g/dL (12.0-16.0); POTASSIUM 4.9 mmol/L (3.5-5.1)
[2019-05-09 11:28] LABS: HEMATOCRIT 15.2 % (36-46)
[2019-05-09] MEDS ORDERED: CefTRIAXone 1 GM/DEXTROSE 50 ML IV ONE (11:30)
[2019-05-09 11:33] LABS: ALBUMIN 1.6 g/dL (3.4-5.0); BILIRUBIN,TOTAL 0.8 mg/dL (0.1-1.0); TOTAL PROTEIN, SERUM 5.2 g/dL (6.4-8.2)
[2019-05-09 11:36] LABS: INR 1.5 (0.9-1.1)
[2019-05-09] MEDS ORDERED: OCTREOTIDE ACETATE 100 MCG/ML VIAL IVP ONE (11:45)
[2019-05-09] MEDS ORDERED: PANTOPRAZOLE SODIUM 80 MG in SODIUM CHLORIDE 0.9% 100 ML IV SCH ×2 (11:45→23:30)
[2019-05-09] MEDS ORDERED: OCTREOTIDE ACETATE 500 MCG in DEXTROSE 5%-WATER 97.5 ML IV SCH (11:45)
[2019-05-09] MEDS ORDERED: MAGNESIUM SULFATE 4 GM/WATER 100 ML IV PRN (12:30)
[2019-05-09] MEDS ORDERED: ACETAMINOPHEN 325 MG TABLET PO PRN (12:30)
[2019-05-09] MEDS ORDERED: ONDANSETRON HCL 4 MG/2 ML VIAL IVP PRN (12:30)
[2019-05-09] MEDS ORDERED: PHYTONADIONE 10 MG/1 ML AMP SQ ONE (12:30)
[2019-05-09] MEDS ORDERED: 0.9% SODIUM CHLORIDE 10 ML SYRINGE IVP PRN (12:30)
[2019-05-09] MEDS ORDERED: MAGNESIUM OXIDE 400 MG TABLET PO PRN (12:30)
[2019-05-09] MEDS ORDERED: DEXTROSE 50%-WATER 25 GM/50 ML SYRINGE IVP PRN (12:45)
[2019-05-09 12:50] LABS: MAGNESIUM 1.5 mg/dL (1.80-2.40)
[2019-05-09 13:13] LABS: BILIRUBIN,URINE NEGATIVE (NEGATIVE); GLUCOSE, URINE (UA) NEGATIVE (NEGATIVE); KETONES,URINE NEGATIVE (NEGATIVE); LEUKOCYTE ESTERASE ,URINE NEGATIVE (NEGATIVE); NITRATE,URINE NEGATIVE (NEGATIVE); OCCULT BLOOD,URINE NEGATIVE (NEGATIVE); PH,URINE 5.5 (5.0-8.0); PROTEIN,URINE NEGATIVE (NEGATIVE); UROBILINOGEN,URINE 0.2 mg/dL (<=1.0)
[2019-05-09 13:19] LABS: APPEARANCE,URINE CLEAR (CLEAR)
[2019-05-09] MEDS ORDERED: MORPHINE SULFATE 4 MG/ML SYRINGE IVP ONE (15:45)
[2019-05-09] MEDS ORDERED: SODIUM CHLORIDE 0.9% 50 ML ONE (16:07)
[2019-05-09] MEDS ORDERED: PEG 3350/NA SULF,BICARB,CL/KCL 4000 ML SOLUTION PO ONE (17:00)
[2019-05-09] MEDS: MAGNESIUM SULFATE 2 GM/WATER 50 ML IV PRN (20:00)
[2019-05-09] MEDS: DOCUSATE SODIUM 100 MG CAPSULE PO SCH (20:05)
[2019-05-09] MEDS: INSULIN LISPRO 100 UNITS/ML SQ PRN (21:29)
[2019-05-09] MEDS: MORPHINE SULFATE 2 MG/ML SYRINGE IVP PRN (21:30)
[2019-05-09 21:49] LABS: GLUCOSE,POINT OF CARE 199 MG/DL (70-110)
[2019-05-10] MEDS ORDERED: OCTREOTIDE ACETATE 500 MCG in DEXTROSE 5%-WATER 97.5 ML IV SCH ×2
[2019-05-10] MEDS ORDERED: ONDANSETRON HCL 4 MG/2 ML VIAL IVP ONE (02:00)
[2019-05-10] MEDS: MORPHINE SULFATE 2 MG/ML SYRINGE IVP PRN ×4 (03:35→21:31)
[2019-05-10 07:07] LABS: BASOPHILS % (AUTO) 1.1 % (0.0-2.0); EOSINOPHILS % (AUTO) 3.5 % (1.0-6.0); HEMATOCRIT 21.6 % (36-46); HEMOGLOBIN 7.4 g/dL (12.0-16.0); LYMPHOCYTES % (AUTO) 19.1 % (22.0-44.0); MEAN CORPUSCULAR HEMOGLOBIN 30.5 pg (26.0-34.0); MEAN CORPUSCULAR HGB CONC 34.5 G/dL (31.0-37.0); MEAN CORPUSCULAR VOLUME 88 fL (80-100); MONOCYTES # (AUTO) 1.5 K/uL (0.1-1.0); MONOCYTES % (AUTO) 14.4 % (2.0-9.0); NEUTROPHILS # (AUTO) 6.6 K/uL (1.8-7.7); NEUTROPHILS % (AUTO) 61.9 % (40.0-70.0); PLATELET COUNT (AUTO) 133 K/uL (150-450); RED BLOOD CELL COUNT(AUTO) 2.44 MIL/uL (4.00-5.20)
[2019-05-10 07:29] LABS: GLUCOSE,POINT OF CARE 254 MG/DL (70-110)
[2019-05-10] MEDS ORDERED: VANCOMYCIN HCL 1.25 GM in DEXTROSE 5%-WATER 250 ML IV ONE (08:15)
[2019-05-10] MEDS ORDERED: FentaNYL CITRATE-PF 100 MCG/2 ML VIAL ONE (08:17)
[2019-05-10] MEDS ORDERED: MIDAZOLAM HCL 2 MG/2 ML VIAL ONE ×2 (08:17→08:24)
[2019-05-10] MEDS: DOCUSATE SODIUM 100 MG CAPSULE PO SCH ×2 (09:00→21:00)
[2019-05-10] MEDS ORDERED: RINGERS SOLUTION,LACTATED 1,000 ML IV ONE (09:41)
[2019-05-10 09:45] VITALS: BP 135/81
[2019-05-10 12:14] LABS: GLUCOMETER DEV NAME(LOC) 5N.1; GLUCOSE,POINT OF CARE 325 MG/DL (70-110)
[2019-05-10] MEDS: INSULIN LISPRO 100 UNITS/ML SQ PRN ×3 (12:52→21:24)
[2019-05-10 12:59] VITALS: BP 125/83
[2019-05-10 15:53] VITALS: BP 112/70
[2019-05-10] MEDS: MAGNESIUM SULFATE 2 GM/WATER 50 ML IV PRN (18:16)
[2019-05-10 18:27] LABS: GLUCOMETER DEV NAME(LOC) 5N.1; GLUCOSE,POINT OF CARE 172 MG/DL (70-110)
[2019-05-10 19:55] VITALS: BP 113/69
[2019-05-10] MEDS: VANCOMYCIN HCL 750 MG in DEXTROSE 5%-WATER 250 ML IV SCH (21:21)
[2019-05-11 00:12] VITALS: BP 130/80
[2019-05-11 04:15] VITALS: BP 127/70
[2019-05-11] MEDS: PANTOPRAZOLE SODIUM 40 MG DR TABLET PO SCH (05:48)
[2019-05-11] MEDS: INSULIN LISPRO 100 UNITS/ML SQ PRN ×4 (05:50→18:02)
[2019-05-11] MEDS: MORPHINE SULFATE 2 MG/ML SYRINGE IVP PRN ×3 (05:54→18:00)
[2019-05-11 06:53] LABS: CALCIUM, TOTAL 7.2 mg/dL (8.8-10.5); CREATININE 1.05 mg/dL (0.60-1.30); POTASSIUM 3.1 mmol/L (3.5-5.1)
[2019-05-11 08:28] VITALS: BP 113/72
[2019-05-11 08:39] LABS: GLUCOMETER DEV NAME(LOC) 5S.1; GLUCOSE,POINT OF CARE 169 MG/DL (70-110)
[2019-05-11 08:39] LABS: GLUCOMETER DEV NAME(LOC) 5S.1; GLUCOSE,POINT OF CARE 283 MG/DL (70-110)
[2019-05-11 08:39] LABS: GLUCOMETER DEV NAME(LOC) 5S.1; GLUCOSE,POINT OF CARE 188 MG/DL (70-110)
[2019-05-11] MEDS: DOCUSATE SODIUM 100 MG CAPSULE PO SCH ×2 (08:45→21:00)
[2019-05-11] MEDS: VANCOMYCIN HCL 750 MG in DEXTROSE 5%-WATER 250 ML IV SCH ×2 (08:48→21:31)
[2019-05-11 11:08] VITALS: BP 114/74
[2019-05-11 12:00] LABS: GLUCOMETER DEV NAME(LOC) 5N.1; GLUCOSE,POINT OF CARE 319 MG/DL (70-110)
[2019-05-11] MEDS ORDERED: PROPOFOL 1% 20 ML VIAL IVP ONE (12:00)
[2019-05-11] MEDS: POTASSIUM CHL 10 MEQ/WATER 50 ML IV PRN ×3 (13:30→17:54)
[2019-05-11] MEDS ORDERED: SODIUM CHLORIDE 0.9% 0 ML ONE (13:58)
[2019-05-11] MEDS ORDERED: IOVERSOL 320 MG/ML 100 ML VIAL ONE (13:58)
[2019-05-11] MEDS ORDERED: LORazepam 2 MG/ML VIAL IVP PRN (14:00)
[2019-05-11 16:29] VITALS: BP 112/72
[2019-05-11] MEDS ORDERED: BARIUM SULFATE 0.1% SUSPENSION 450 ML BOTTLE PO ONE (17:30)
[2019-05-11 19:16] LABS: GLUCOMETER DEV NAME(LOC) 5N.1; GLUCOSE,POINT OF CARE 142 MG/DL (70-110)
[2019-05-11 20:23] VITALS: BP 122/85
[2019-05-12 00:25] VITALS: BP 112/69
[2019-05-12] MEDS: MORPHINE SULFATE 2 MG/ML SYRINGE IVP PRN ×3 (00:27→14:42)
[2019-05-12 04:40] VITALS: BP 98/67
[2019-05-12 05:17] LABS: GLUCOMETER DEV NAME(LOC) 5N.1; GLUCOSE,POINT OF CARE 132 MG/DL (70-110)
[2019-05-12] MEDS: PANTOPRAZOLE SODIUM 40 MG DR TABLET PO SCH (05:17)
[2019-05-12] MEDS: INSULIN LISPRO 100 UNITS/ML SQ PRN ×4 (05:42→18:14)
[2019-05-12 06:29] LABS: GLUCOMETER DEV NAME(LOC) 5N.1; GLUCOSE,POINT OF CARE 273 MG/DL (70-110)
[2019-05-12 06:47] LABS: HEMATOCRIT 23.9 % (36-46); HEMOGLOBIN 8.1 g/dL (12.0-16.0); MEAN CORPUSCULAR HEMOGLOBIN 30.8 pg (26.0-34.0); MEAN CORPUSCULAR HGB CONC 34.1 G/dL (31.0-37.0); MEAN CORPUSCULAR VOLUME 90 fL (80-100); PLATELET COUNT (AUTO) 100 K/uL (150-450); RED BLOOD CELL COUNT(AUTO) 2.64 MIL/uL (4.00-5.20); RED CELL DISTRIBUTION WIDTH 16.6 % (11.5-14.5)
[2019-05-12 07:16] LABS: CALCIUM, TOTAL 7.1 mg/dL (8.8-10.5); CREATININE 1.05 mg/dL (0.60-1.30); POTASSIUM 3.8 mmol/L (3.5-5.1); VANCOMYCIN,RANDOM 18.9 mcg/mL (25.0-50.0)
[2019-05-12 07:50] VITALS: BP 102/64
[2019-05-12] MEDS ORDERED: VANCOMYCIN HCL 1 GM/D5% WATER 200 ML IV SCH (08:00)
[2019-05-12] MEDS: DOCUSATE SODIUM 100 MG CAPSULE PO SCH (08:06)
[2019-05-12 08:22] LABS: BAND NEUTROPHILS % (MANUAL) 3 % (0-5); EOSINOPHILS % (MANUAL) 2 % (1-6); LYMPHOCYTES % (MANUAL) 21 % (22-44); MONOCYTES % (MANUAL) 8 % (2-9); SEGMENTED NEUTROPHILS % 66 % (40-70)
[2019-05-12] MEDS ORDERED: MULTIVITAMINS WITH MINERALS, THERAPEUTIC TABLET PO SCH (09:30)
[2019-05-12] MEDS ORDERED: PANT40TA25 PO (11:12)
[2019-05-12] MEDS ORDERED: vanco IV (11:14)
[2019-05-12] MEDS ORDERED: VANC1FZ IV (11:16)
[2019-05-12 11:29] VITALS: BP 112/73
[2019-05-12 12:28] LABS: GLUCOMETER DEV NAME(LOC) 5N.1; GLUCOSE,POINT OF CARE 207 MG/DL (70-110)
[2019-05-12 12:28] LABS: GLUCOMETER DEV NAME(LOC) 5N.1; GLUCOSE,POINT OF CARE 184 MG/DL (70-110)
[2019-05-12] MEDS ORDERED: DICYCLOMINE HCL 10 MG CAPSULE PO PRN (14:45)
[2019-05-12 15:31] VITALS: BP 129/66
[2019-05-12 18:02] LABS: GLUCOMETER DEV NAME(LOC) 5N.1; GLUCOSE,POINT OF CARE 290 MG/DL (70-110)
== END 2019-05-12 19:41 | DRG 241 ==
LOC: EMS 10:04 → 5N 05-10 08:04
PROVIDERS: ADMIT Internal Medicine; ATTEND Internal Medicine
PROC: 0DJ08ZZ Inspection of Upper Intestinal Tract, Via Natural or Artificial Opening Endoscopic (ICD-10-PCS; 2019-05-10)
PROC: 0W9G3ZX Drainage of Peritoneal Cavity, Percutaneous Approach, Diagnostic (ICD-10-PCS; 2019-05-10)
PROC: 30233N1 Transfusion of Nonautologous Red Blood Cells into Peripheral Vein, Percutaneous Approach (ICD-10-PCS; 2019-05-10)
PROC: 0DJD8ZZ Inspection of Lower Intestinal Tract, Via Natural or Artificial Opening Endoscopic (ICD-10-PCS; principal; 2019-05-10 07:30)
DX: K25.4 Chronic or unspecified gastric ulcer with hemorrhage (principal); E43 Unspecified severe protein-calorie malnutrition; D68.9 Coagulation defect, unspecified; E11.69 Type 2 diabetes mellitus with other specified complication; K76.6 Portal hypertension; K57.31 Diverticulosis of large intestine without perforation or abscess with bleeding; M86.8X7 Other osteomyelitis, ankle and foot; K70.31 Alcoholic cirrhosis of liver with ascites; K63.5 Polyp of colon; K64.8 Other hemorrhoids; K44.9 Diaphragmatic hernia without obstruction or gangrene; J44.9 Chronic obstructive pulmonary disease, unspecified; F10.10 Alcohol abuse, uncomplicated; D64.9 Anemia, unspecified; I10 Essential (primary) hypertension; F17.210 Nicotine dependence, cigarettes, uncomplicated; Z68.24 Body mass index [BMI] 24.0-24.9, adult; Z79.4 Long term (current) use of insulin; Z91.14 Patient's other noncompliance with medication regimen; Z90.710 Acquired absence of both cervix and uterus; Z91.19 Patient's noncompliance with other medical treatment and regimen; Z88.1 Allergy status to other antibiotic agents; Z90.49 Acquired absence of other specified parts of digestive tract
CPT/HCPCS: 49083; 74176; 76700; 76705; 76942; 82105; 82271; 83735; 84132; 86850; 86900; 86901; 86920; 87040; 87045; 87081; 93005; 96365; 99291; C9113; J0696; J2250; J2270; J2354; J2405; J2704; J3010; J3370; J3430; J3475; J3480; J3490; J7050; J7060; J7120; P9016

== ENCOUNTER 2019-05-20 09:44 | Emergency (ER) | payer OTHER ==
[~2019-05-20] VITALS: Ht 149.9 cm; Wt 65.0 kg
[~2019-05-20 09:44] MED LIST changes: +AMLO10TA7 PO; -BECL8.7A6 IH; +DOCU-275 PO; +GABA-529 PO; +INSLAN SQ; -METH10 PO; +MULT-723 PO; +PANT40TA25 PO; +VANC1FZ IV
[2019-05-20 11:39] LABS: BASOPHILS % (AUTO) 1.3 % (0.0-2.0); EOSINOPHILS % (AUTO) 8.9 % (1.0-6.0); HEMATOCRIT 24.7 % (36-46); HEMOGLOBIN 7.7 g/dL (12.0-16.0); LYMPHOCYTES # (AUTO) 0.8 K/uL (1.0-4.8); LYMPHOCYTES % (AUTO) 16.1 % (22.0-44.0); MEAN CORPUSCULAR HEMOGLOBIN 27.5 pg (26.0-34.0); MEAN CORPUSCULAR HGB CONC 31.2 G/dL (31.0-37.0); MEAN CORPUSCULAR VOLUME 88 fL (80-100); MONOCYTES # (AUTO) 0.9 K/uL (0.1-1.0); MONOCYTES % (AUTO) 17.7 % (2.0-9.0); NEUTROPHILS # (AUTO) 2.9 K/uL (1.8-7.7); PLATELET COUNT (AUTO) 88 K/uL (150-450); RED CELL DISTRIBUTION WIDTH 18.2 % (11.5-14.5)
[2019-05-20 11:53] LABS: ANION GAP 7 mmol/L (8-16); CALCIUM, TOTAL 8.3 mg/dL (8.8-10.5); CARBON DIOXIDE 21 mmol/L (22-29); CHLORIDE 103 mmol/L (98-107); CREATININE 0.86 mg/dL (0.60-1.30); GLOMERULAR FILTR. RATE CALC > 60 mL/min (>60); GLUCOSE,RANDOM 249 mg/dL (70-110); POTASSIUM 4.8 mmol/L (3.5-5.1); SODIUM SERUM 131 mmol/L (136-145); UREA NITROGEN, BLOOD 12 mg/dL (7-18)
[2019-05-20 11:56] LABS: INR 1.2 (0.9-1.1); PROTHROMBIN TIME 12.3 SEC (9.4-11.6)
[2019-05-20 11:59] LABS: ALANINE AMINOTRANSFERASE 50 U/L (12-78); ALBUMIN 1.6 g/dL (3.4-5.0); ALKALINE PHOSPHATASE 127 U/L (46-116); ASPARTATE AMINOTRANSFERASE 60 U/L (15-37); LIPASE 200 U/L (73-393); TOTAL PROTEIN, SERUM 5.7 g/dL (6.4-8.2)
[2019-05-20] MEDS ORDERED: MORPHINE SULFATE 4 MG/ML SYRINGE IVP ONE (12:00)
[2019-05-20] MEDS ORDERED: FAMOTIDINE 10 MG/ML 2 ML VIAL IVP ONE (12:00)
[2019-05-20] MEDS ORDERED: CALCIUM GLUCONATE 0.465 MEQ/ML 10 ML VIAL IVP ONE (13:00)
[2019-05-20] MEDS ORDERED: MAGNESIUM SULFATE 2 GM/WATER 50 ML IV ONE (13:00)
[2019-05-20 13:34] LABS: APPEARANCE,URINE CLEAR (CLEAR); BILIRUBIN,URINE NEGATIVE (NEGATIVE); GLUCOSE, URINE (UA) NEGATIVE (NEGATIVE); KETONES,URINE NEGATIVE (NEGATIVE); LEUKOCYTE ESTERASE ,URINE NEGATIVE (NEGATIVE); NITRATE,URINE NEGATIVE (NEGATIVE); OCCULT BLOOD,URINE NEGATIVE (NEGATIVE); PH,URINE 6.5 (5.0-8.0); PROTEIN,URINE NEGATIVE (NEGATIVE); UROBILINOGEN,URINE 0.2 mg/dL (<=1.0)
[2019-05-20 14:19] LABS: BACTERIA,URINE None Seen /HPF (None Seen); RBC,URINE None Seen /HPF (0-2); SQUAMOUS EPITHELIAL CELL,UR Moderate /LPF (None Seen); WBC,URINE None Seen /HPF (0-5)
[2019-05-20 15:57] VITALS: BP 124/82
== END 2019-05-20 16:47 | disposition home or self-care (01) ==
LOC: EMS 09:48
DX: K29.70 Gastritis, unspecified, without bleeding (principal); K74.60 Unspecified cirrhosis of liver; E83.51 Hypocalcemia; E83.42 Hypomagnesemia; D64.9 Anemia, unspecified; J44.9 Chronic obstructive pulmonary disease, unspecified; I10 Essential (primary) hypertension; M86.8X7 Other osteomyelitis, ankle and foot; F17.210 Nicotine dependence, cigarettes, uncomplicated; Z86.19 Personal history of other infectious and parasitic diseases; Z90.710 Acquired absence of both cervix and uterus; Z79.899 Other long term (current) drug therapy; Z98.890 Other specified postprocedural states; Z88.8 Allergy status to other drugs, medicaments and biological substances
CPT/HCPCS: 36415; 80053; 81001; 82140; 83690; 83735; 83880; 84484; 85025; 85610; 85730; 86850; 86900; 86901; 96365; 96366; 96375; 99285; J0610; J2270; J3475; J3490

== ENCOUNTER 2019-05-28 23:00 | Inpatient (IN) | payer OTHER ==
[~2019-05-28] VITALS: Ht 149.9 cm; Wt 73.7 kg
[~2019-05-28 23:00] MED LIST changes: -PANT40TA25 PO
[2019-05-28] MEDS ORDERED: PANT40TA25 PO (23:18)
[2019-05-28] MEDS ORDERED: FURO40 PO (23:18)
[2019-05-28] MEDS ORDERED: SPIR50 PO (23:18)
[2019-05-29] MEDS ORDERED: ONDANSETRON HCL 4 MG/2 ML VIAL IVP PRN ×2
[2019-05-29] MEDS ORDERED: MORPHINE SULFATE 2 MG/ML SYRINGE IVP PRN
[2019-05-29] MEDS ORDERED: ZOLPIDEM TARTRATE 5 MG TABLET PO PRN
[2019-05-29] MEDS ORDERED: HYDROCODONE/ACETAMINOPHEN 5-325 MG TABLET PO PRN
[2019-05-29] MEDS ORDERED: ACETAMINOPHEN 325 MG TABLET PO PRN ×2
[2019-05-29] MEDS ORDERED: BISACODYL 10 MG RECTAL RECTAL SUPPOSITORY PR PRN
[2019-05-29] MEDS ORDERED: 0.9% SODIUM CHLORIDE 10 ML SYRINGE IVP PRN
[2019-05-29] MEDS ORDERED: MAGNESIUM HYDROXIDE SUSPENSION 30 ML UDCUP PO PRN
[2019-05-29] MEDS ORDERED: HYDROmorphone 2 MG/ML SYRINGE IVP ONE (00:15)
[2019-05-29] MEDS ORDERED: ONDANSETRON HCL 4 MG/2 ML VIAL IVP ONE (00:15)
[2019-05-29 00:28] LABS: APPEARANCE,URINE TURBID (CLEAR); BILIRUBIN,URINE NEGATIVE (NEGATIVE); GLUCOSE, URINE (UA) NEGATIVE (NEGATIVE); KETONES,URINE NEGATIVE (NEGATIVE); LEUKOCYTE ESTERASE ,URINE TRACE (NEGATIVE); NITRATE,URINE NEGATIVE (NEGATIVE); OCCULT BLOOD,URINE TRACE (NEGATIVE); PROTEIN,URINE NEGATIVE (NEGATIVE); UROBILINOGEN,URINE 0.2 mg/dL (<=1.0)
[2019-05-29 00:32] LABS: AMMONIA 19 umol/L (11-32); TROPONIN I < 0.02 ng/mL (0.00-0.05)
[2019-05-29 00:33] LABS: INR 3.1 (0.9-1.1); PROTHROMBIN TIME 31.4 SEC (9.4-11.6)
[2019-05-29 00:40] LABS: BACTERIA,URINE Rare /HPF (None Seen); RBC,URINE 0-2 /HPF (0-2); SQUAMOUS EPITHELIAL CELL,UR Many /LPF (None Seen); WBC,URINE 0-2 /HPF (0-5)
[2019-05-29 00:40] LABS: HEMOGLOBIN 9.3 g/dL (12.0-16.0); MEAN CORPUSCULAR HEMOGLOBIN 25.5 pg (26.0-34.0); MEAN CORPUSCULAR HGB CONC 28.5 G/dL (31.0-37.0); MEAN CORPUSCULAR VOLUME 90 fL (80-100); RED BLOOD CELL COUNT(AUTO) 3.65 MIL/uL (4.00-5.20); RED CELL DISTRIBUTION WIDTH 19.8 % (11.5-14.5)
[2019-05-29 00:51] LABS: BAND NEUTROPHILS % (MANUAL) 19 % (0-5); EOSINOPHILS % (MANUAL) 6 % (1-6); LYMPHOCYTES % (MANUAL) 6 % (22-44); METAMYELOCYTES % 1 % (0-0); MONOCYTES % (MANUAL) 8 % (2-9); SEGMENTED NEUTROPHILS % 60 % (40-70)
[2019-05-29 00:52] LABS: PLATELET COUNT (AUTO) 86 K/uL (150-450); PLATELET MORPHOLOGY COMMENT LARGE PLTS PRESENT
[2019-05-29 00:53] LABS: ALBUMIN 1.2 g/dL (3.4-5.0); BILIRUBIN,TOTAL 1.8 mg/dL (0.1-1.0); CALCIUM, TOTAL 8.6 mg/dL (8.8-10.5); CREATININE 3.51 mg/dL (0.60-1.30); TOTAL PROTEIN, SERUM 4.3 g/dL (6.4-8.2)
[2019-05-29 00:55] LABS: LACTIC ACID 14.2 mmol/L (0.4-2.0)
[2019-05-29 00:56] LABS: POTASSIUM 6.4 mmol/L (3.5-5.1)
[2019-05-29] MEDS ORDERED: INSULIN REGULAR, HUMAN 100 UNITS/ML IVP ONE (01:15)
[2019-05-29] MEDS ORDERED: SODIUM BICARBONATE [ADULT] 8.4% 50 MEQ/50 ML SYRINGE IVP ONE ×4 (01:15→14:55)
[2019-05-29] MEDS ORDERED: CLINDAMYCIN 900 MG/D5% WATER 50 ML IV ONE (01:15)
[2019-05-29] MEDS ORDERED: SODIUM POLYSTYRENE SULFONATE 15 GM/60 ML SUSPENSION BOTTLE PO ONE (01:15)
[2019-05-29] MEDS ORDERED: DEXTROSE 50%-WATER 25 GM/50 ML SYRINGE IVP ONE (01:15)
[2019-05-29] MEDS ORDERED: ALBUTEROL SULFATE 2.5 MG/0.5 ML NEB SOLUTION NEB ONE (01:15)
[2019-05-29] MEDS ORDERED: SODIUM CHLORIDE 0.9% 1,000 ML IV ONE ×5 (01:15→08:00)
[2019-05-29] MEDS ORDERED: CALCIUM GLUCONATE 100 MG/ML 10 ML IVP ONE (01:15)
[2019-05-29 01:37] LABS: ABG BASE EXCESS -26.5 mmol/L (-2.0-3.0); ABG METHEMOGLOBIN 0.3 % (0.0-1.5); ABG OXYGEN CONTENT 11.5 mL/dL (15.0-23.0); ABG OXYGEN SATURATION 99.1 % (95.0-98.0); ABG OXYHEMOGLOBIN 97.8 % (94.0-100.0); ABG TOTAL HEMOGLOBIN 8.1 G/dL (12.0-18.0); PO2, ARTERIAL BG 144.9 mmHg (84.0-92.0); SOURCE, BLOOD GAS ARTERIAL; TEMPERATURE, FAHRENHEIT, BG 91.3 FAHREN (96.0-98.6)
[2019-05-29 01:40] LABS: ABG HCO3 6.5 mmol/L (22.0-26.0); ABG PCO2 7 mmHg (35-45); ABG PH 7.181 (7.35-7.450); O2 DEVICE,BLOOD GAS CANNULA (ROOM AIR); SITE, BLOOD GAS RT RADIAL
[2019-05-29] MEDS: NOREPINEPHRINE 4 MG/D5%-WATER 250 ML IV PRN ×3 (02:29→13:07)
[2019-05-29 03:14] VITALS: BP 64/33
[2019-05-29 03:25] LABS: GLUCOSE,POINT OF CARE 107 MG/DL (70-110)
[2019-05-29 04:00] VITALS: BP 60/22
[2019-05-29 04:34] LABS: ABG A-A DIFF O2 60.5 mmHg (10-20.0); ABG BASE EXCESS -26.4 mmol/L (-2.0-3.0); ABG CARBOXYHEMOGLOBIN 0.6 % (0.0-1.5); ABG METHEMOGLOBIN 0.3 % (0.0-1.5); ABG OXYGEN CONTENT 12.7 mL/dL (15.0-23.0); ABG OXYGEN SATURATION 94.6 % (95.0-98.0); ABG OXYHEMOGLOBIN 93.7 % (94.0-100.0); ABG TOTAL HEMOGLOBIN 9.5 G/dL (12.0-18.0); PO2, ARTERIAL BG 76.7 mmHg (84.0-92.0); SOURCE, BLOOD GAS ARTERIAL; TEMPERATURE, FAHRENHEIT, BG 91.1 FAHREN (96.0-98.6)
[2019-05-29 04:36] LABS: ABG HCO3 6.7 mmol/L (22.0-26.0); ABG PCO2 12 mmHg (35-45); ABG PH 7.108 (7.35-7.450); O2 DEVICE,BLOOD GAS ROOM AIR (ROOM AIR); SITE, BLOOD GAS RT RADIAL
[2019-05-29] MEDS ORDERED: PHENYLEPHRINE 200 MG/D5%-WATER 250 ML IV PRN (04:53)
[2019-05-29] MEDS ORDERED: RAPID SEQUENCE KIT [RSI] 1 EACH KIT ONE (05:57)
[2019-05-29 06:08] LABS: CALCIUM, TOTAL 7.9 mg/dL (8.8-10.5); CREATININE 3.3 mg/dL (0.60-1.30); POTASSIUM 5.8 mmol/L (3.5-5.1)
[2019-05-29] MEDS ORDERED: DOPamine HCL 400 MG/D5%-WATER 250 ML IV ONE (06:14)
[2019-05-29] MEDS ORDERED: EPINEPHrine 1:10,000 [1 MG/10 ML] SYRINGE ONE (06:15)
[2019-05-29] MEDS: DOPamine HCL 400 MG/D5%-WATER 250 ML IV PRN ×2 (06:21→11:02)
[2019-05-29] MEDS ORDERED: LORazepam 2 MG/ML VIAL ONE (06:24)
[2019-05-29] MEDS ORDERED: PROPOFOL 1000 MG/ISO-OSM 100 ML IV ONE (06:52)
[2019-05-29] MEDS ORDERED: LORazepam 2 MG/ML VIAL IVP ONE (07:00)
[2019-05-29 07:13] LABS: ABG A-A DIFF O2 627.1 mmHg (10-20.0); ABG METHEMOGLOBIN 0.2 % (0.0-1.5); ABG OXYGEN CONTENT 7.6 mL/dL (15.0-23.0); ABG OXYHEMOGLOBIN 72.7 % (94.0-100.0); ABG PCO2 43 mmHg (35-45); PO2, ARTERIAL BG 53.2 mmHg (84.0-92.0); SOURCE, BLOOD GAS ARTERIAL; TEMPERATURE, FAHRENHEIT, BG 91.1 FAHREN (96.0-98.6)
[2019-05-29 07:14] LABS: ABG HCO3 3.7 mmol/L (22.0-26.0); ABG PH 6.742 (7.35-7.450); ABG TOTAL HEMOGLOBIN 7.3 G/dL (12.0-18.0)
[2019-05-29 07:15] LABS: ABG OXYGEN SATURATION 73.6 % (95.0-98.0); O2 DEVICE,BLOOD GAS VENTILATOR (ROOM AIR); PEEP,BG 10 cm H2O; SITE, BLOOD GAS RT BRACHIAL; VT, ABG 450 ml
[2019-05-29] MEDS ORDERED: SODIUM CHLORIDE 0.9% 500 ML IV ONE (07:35)
[2019-05-29] MEDS ORDERED: VASOPRESSIN 40 UNITS in DEXTROSE 5%-WATER 98 ML IV PRN (07:55)
[2019-05-29 08:00] VITALS: BP 64/25
[2019-05-29] MEDS: HEPARIN SODIUM,PORCINE 5,000 UNITS/ML VIAL SQ SCH ×2 (08:00)
[2019-05-29] MEDS: SODIUM BICARBONATE 150 MEQ in DEXTROSE 5%-WATER 1,000 ML IV SCH ×2 (08:33→16:00)
[2019-05-29] MEDS ORDERED: PANTOPRAZOLE SODIUM 40 MG DR TABLET PO SCH (09:00)
[2019-05-29] MEDS ORDERED: DOCUSATE SODIUM 100 MG CAPSULE PO SCH (09:00)
[2019-05-29] MEDS ORDERED: HEPARIN SODIUM,PORCINE 1,000 UNITS/ML VIAL IVP ONE (09:15)
[2019-05-29] MEDS ORDERED: PIPERACILLIN/TAZO 3.375 GM/D5W 50 ML IV ONE ×2 (10:00)
[2019-05-29] MEDS ORDERED: *CLINICAL-RX DOSING [ENTER DRUG IN COMMENTS] CLINICAL ONE (11:15)
[2019-05-29 11:37] LABS: ALANINE AMINOTRANSFERASE 109 U/L (12-78); ALKALINE PHOSPHATASE 96 U/L (46-116); ANION GAP 20 mmol/L (8-16); ASPARTATE AMINOTRANSFERASE 463 U/L (15-37); BILIRUBIN,TOTAL 1.1 mg/dL (0.1-1.0); CHLORIDE 112 mmol/L (98-107); CREATININE 2.23 mg/dL (0.60-1.30); GLOMERULAR FILTR. RATE CALC 22 mL/min (>60); GLUCOSE,RANDOM 113 mg/dL (70-110); POTASSIUM 4.4 mmol/L (3.5-5.1); SODIUM SERUM 137 mmol/L (136-145); UREA NITROGEN, BLOOD 36 mg/dL (7-18)
[2019-05-29 11:39] LABS: ALBUMIN < 0.6 g/dL (3.4-5.0); TOTAL PROTEIN, SERUM < 2.0 g/dL (6.4-8.2)
[2019-05-29 11:44] LABS: CALCIUM, TOTAL 5.1 mg/dL (8.8-10.5); CARBON DIOXIDE 5 mmol/L (22-29)
[2019-05-29 12:00] VITALS: BP 73/25
[2019-05-29] MEDS ORDERED: LEVOFLOXACIN 500 MG/D5% WATER 100 ML IV SCH (12:00)
[2019-05-29] MEDS ORDERED: CLINDAMYCIN 900 MG/D5% WATER 50 ML IV SCH (12:00)
[2019-05-29] MEDS ORDERED: HYDROCORTISONE SOD SUCC 100 MG/2 ML VIAL IVP SCH (12:00)
[2019-05-29 12:45] LABS: MEAN CORPUSCULAR HEMOGLOBIN 26.3 pg (26.0-34.0); MEAN CORPUSCULAR HGB CONC 26.4 G/dL (31.0-37.0); MEAN CORPUSCULAR VOLUME 100 fL (80-100); RED BLOOD CELL COUNT(AUTO) 2.05 MIL/uL (4.00-5.20); RED CELL DISTRIBUTION WIDTH 20.6 % (11.5-14.5)
[2019-05-29 12:50] LABS: HEMATOCRIT 20.4 % (36-46); HEMOGLOBIN 5.4 g/dL (12.0-16.0)
[2019-05-29] MEDS ORDERED: SODIUM CHLORIDE 0.9% 250 ML IV ONE (12:54)
[2019-05-29] MEDS ORDERED: MEROPENEM 1 GM in SODIUM CHLORIDE 0.9% 100 ML IV ONE (13:00)
[2019-05-29] MEDS ORDERED: DAPTOMYCIN 500 MG in SODIUM CHLORIDE 0.9% 50 ML IV SCH (13:00)
[2019-05-29] MEDS ORDERED: PANTOPRAZOLE SODIUM 80 MG in SODIUM CHLORIDE 0.9% 100 ML IV SCH (13:00)
[2019-05-29] MEDS: CALCIUM GLUCONATE 1,000 MG in DEXTROSE 5%-WATER 50 ML IV SCH ×3 (13:10→15:00)
[2019-05-29 13:13] LABS: PLATELET COUNT (AUTO) 42 K/uL (150-450)
[2019-05-29 13:20] LABS: BAND NEUTROPHILS % (MANUAL) 27 % (0-5); EOSINOPHILS % (MANUAL) 7 % (1-6); LYMPHOCYTES % (MANUAL) 12 % (22-44); METAMYELOCYTES % 1 % (0-0); MONOCYTES % (MANUAL) 3 % (2-9); MYELOCYTES % 3 % (0-0); SEGMENTED NEUTROPHILS % 47 % (40-70); WBC MORPHOLOGY TOXIC GRANULATION
[2019-05-29] MEDS ORDERED: EPINEPHrine 1:10,000 [1 MG/10 ML] SYRINGE IVP ONE (14:55)
[2019-05-29] MEDS ORDERED: ETOMIDATE 2 MG/ML 10 ML VIAL IV ONE (14:55)
[2019-05-29] MEDS ORDERED: ROCURONIUM BROMIDE 10 MG/ML 5 ML VIAL IV ONE (14:55)
[2019-05-29] MEDS ORDERED: ATROPINE SULFATE 0.1 MG/ML 10 ML SYRINGE IVP ONE (14:55)
[2019-05-29] MEDS ORDERED: 0.9% SODIUM CHLORIDE 10 ML SYRINGE IVP ONE (14:55)
[2019-05-29] MEDS ORDERED: 0.9% SODIUM CHLORIDE 1,000 ML BAG IV ONE (14:55)
[2019-05-30] MEDS ORDERED: MEROPENEM 500 MG in SODIUM CHLORIDE 0.9% 50 ML IV SCH (04:00)
== END 2019-05-29 14:56 | disposition expired | DRG 720 ==
LOC: EMS 23:00 → ICU 23:30
PROVIDERS: ADMIT Internal Medicine; ATTEND Internal Medicine
PROC: 5A12012 Performance of Cardiac Output, Single, Manual (ICD-10-PCS; principal; 2019-05-29)
PROC: 5A1935Z Respiratory Ventilation, Less than 24 Consecutive Hours (ICD-10-PCS; 2019-05-29)
PROC: 06HY33Z Insertion of Infusion Device into Lower Vein, Percutaneous Approach (ICD-10-PCS; 2019-05-29)
PROC: 04HY33Z Insertion of Infusion Device into Lower Artery, Percutaneous Approach (ICD-10-PCS; 2019-05-29)
PROC: 06HY33Z Insertion of Infusion Device into Lower Vein, Percutaneous Approach (ICD-10-PCS; 2019-05-29)
PROC: 0BH17EZ Insertion of Endotracheal Airway into Trachea, Via Natural or Artificial Opening (ICD-10-PCS; 2019-05-29)
DX: A41.9 Sepsis, unspecified organism (principal); J96.00 Acute respiratory failure, unspecified whether with hypoxia or hypercapnia; N17.0 Acute kidney failure with tubular necrosis; I46.9 Cardiac arrest, cause unspecified; E43 Unspecified severe protein-calorie malnutrition; R65.21 Severe sepsis with septic shock; D68.9 Coagulation defect, unspecified; E87.1 Hypo-osmolality and hyponatremia; G93.41 Metabolic encephalopathy; E11.9 Type 2 diabetes mellitus without complications; F19.90 Other psychoactive substance use, unspecified, uncomplicated; F17.210 Nicotine dependence, cigarettes, uncomplicated; B19.20 Unspecified viral hepatitis C without hepatic coma; L03.116 Cellulitis of left lower limb; L03.115 Cellulitis of right lower limb; I10 Essential (primary) hypertension; K74.60 Unspecified cirrhosis of liver; E87.2 Acidosis; E87.5 Hyperkalemia; Z88.1 Allergy status to other antibiotic agents; J44.9 Chronic obstructive pulmonary disease, unspecified; Z90.49 Acquired absence of other specified parts of digestive tract; Z90.710 Acquired absence of both cervix and uterus; Z86.14 Personal history of Methicillin resistant Staphylococcus aureus infection; Z68.32 Body mass index [BMI] 32.0-32.9, adult
CPT/HCPCS: 36245; 36569; 36600; 51702; 74176; 76937; 82805; 83605; 83735; 84100; 86850; 86900; 86901; 86920; 87040; 87081; 93005; 94002; 94640; 99291; 99292; C9113; G0378; J0171; J0461; J0610; J0878; J1170; J1265; J1644; J1720; J1815; J1956; J2060; J2185; J2270; J2370; J2405; J2543; J2704; J3490; J7030; J7040; J7050; J7060